=== PATIENT | male | born 1975 ===

== ENCOUNTER 2024-05-16 07:15 | Day surgery (SDC) | payer OTHER ==
[~2024-05-16 07:15] MED LIST: CEPH500 PO; CODACE30 PO; HYDACE5 PO; OXYACE7.5T PO
== END 2024-05-16 23:00 | disposition home or self-care (01) ==
LOC: WOUND 07:15
DX: L02.414 Cutaneous abscess of left upper limb (principal); Z87.891 Personal history of nicotine dependence
CPT/HCPCS: G0463

== ENCOUNTER 2024-05-23 03:20 | Day surgery (SDC) | payer OTHER ==
[2024-05-23] MEDS ORDERED: Lidocaine HCl 4% Cream 5 GM ONE (08:20)
== END 2024-05-23 23:00 | disposition home or self-care (01) ==
LOC: WOUND 03:20
DX: L02.414 Cutaneous abscess of left upper limb (principal)
CPT/HCPCS: A9270

== ENCOUNTER 2024-05-30 06:22 | Day surgery (SDC) | payer OTHER | END 2024-05-30 23:00 | disposition home or self-care (01) | LOC: WOUND 06:22 | DX: L02.414 Cutaneous abscess of left upper limb (principal) | CPT/HCPCS: G0463 ==

== ENCOUNTER 2024-06-06 04:46 | Day surgery (SDC) | payer OTHER | END 2024-06-06 23:00 | disposition home or self-care (01) | LOC: WOUND 04:46 | DX: L02.414 Cutaneous abscess of left upper limb (principal); S51.002D Unspecified open wound of left elbow, subsequent encounter; X58.XXXD Exposure to other specified factors, subsequent encounter | CPT/HCPCS: G0463 ==